=== PATIENT | male | born 1955 | race Caucasian/White ===

== ENCOUNTER 2017-10-10 07:54 | Observation (INO) | payer OTHER ==
[2017-10-10 08:51] LABS: ADD MAN DIFF? NO
[2017-10-10 08:54] LABS: BASOPHILS % 0.5 % (0.0-2.0); EOSINOPHILS # 0.1 10^3/ul (0.0-0.5); HEMATOCRIT 47.8 % (42.0-52.0); HEMOGLOBIN 16.5 g/dl (14.0-18.0); LYMPHOCYTES # 1.7 10^3/ul (0.8-2.9); LYMPHOCYTES % 21.2 % (15.0-51.0); MEAN CORPUSCULAR HEMOGLOBIN 31.3 pg (29.0-33.0); MEAN CORPUSCULAR HGB CONC 34.5 g/dl (32.0-37.0); MEAN CORPUSCULAR VOLUME 90.7 fl (82.0-101.0); MEAN PLATELET VOLUME 9.3 fl (7.4-10.4); MONOCYTE # 0.4 10^3/ul (0.3-0.9); MONOCYTES % 4.6 % (0.0-11.0); NEUTROPHIL # 5.7 10^3/ul (1.6-7.5); NEUTROPHILS % 72.2 % (39.0-77.0); PLATELET COUNT 143 10^3/UL (140-415); RED BLOOD COUNT 5.27 10^6/ul (4.70-6.10); RED CELL DISTRIBUTION WIDTH 12.8 % (11.5-14.5)
[2017-10-10 08:54] LABS: WHITE BLOOD COUNT 7.8 10^3/ul (4.8-10.8)
[2017-10-10 09:16] LABS: ANION GAP 12 (8-16); BLOOD UREA NITROGEN 16 mg/dl (7-20); CALCIUM 9.4 mg/dl (8.4-10.2); CARBON DIOXIDE 27 mmol/L (21-31); CHLORIDE 107 mmol/L (97-110); CREATININE 1.08 mg/dl (0.61-1.24); GLUCOSE 143 mg/dl (70-220); POTASSIUM 4.2 mmol/L (3.5-5.1); SODIUM 142 mmol/L (135-144)
[2017-10-10 09:28] LABS: TROPONIN-I 0.085 ng/ml (0.00-0.12)
[2017-10-10] MEDS: ASPIRIN 325 MG TAB PO (10:09)
[2017-10-10] MEDS ORDERED: ONDANSETRON 4 MG INJ IV (13:00)
[2017-10-10] MEDS ORDERED: HYDROCODONE/APAP (5/325) TAB PO (13:00)
[2017-10-10] MEDS ORDERED: morphine 2 MG INJ IV (13:00)
[2017-10-10] MEDS ORDERED: NITROGLYCERIN (SL) 0.4 MG TAB SL ×2 (13:00→20:30)
[2017-10-10] MEDS ORDERED: ACETAMINOPHEN 325 MG TAB PO ×2 (13:00→20:30)
[2017-10-10] MEDS ORDERED: NACL 0.9% 3 ML SYG IV (13:00)
[2017-10-10] MEDS ORDERED: DOCUSATE SODIUM 100 MG CAP PO (13:00)
[2017-10-10 14:11] LABS: CREATINE KINASE 105 IU/L (23-200)
[2017-10-10 14:24] LABS: CK INDEX 2.5
[2017-10-10 14:41] LABS: CK-MB 2.65 ng/ml (0.0-2.4)
[2017-10-10 14:42] LABS: TROPONIN-I 0.338 ng/ml (0.00-0.12)
[2017-10-10] MEDS ORDERED: VERAPAMIL 5 MG INJ ×2 (16:04→18:42)
[2017-10-10] MEDS ORDERED: LIDOCAINE 1% (MDV) 20 ML INJ (16:04)
[2017-10-10] MEDS ORDERED: FENTAnyl 50 MCG/ML VIAL (16:04)
[2017-10-10] MEDS ORDERED: MIDAZOLAM 1 MG/ML 2 ML INJ (16:04)
[2017-10-10] MEDS ORDERED: NITROGLYCERIN (IC) 100 MCG/ML INJ (16:14)
[2017-10-10] MEDS ORDERED: SOD CHLORIDE 0.9% 500 ML (16:27)
[2017-10-10] MEDS ORDERED: TICAGRELOR 90 MG TABLET (18:44)
[2017-10-10] MEDS ORDERED: IOHEXOL 350MG/ML 50 ML BTL (18:45)
[2017-10-10] MEDS ORDERED: IODIXANOL LOCM 100 ML BTL (18:46)
[2017-10-10] MEDS ORDERED: ADENOSINE 30 ML (19:16)
[2017-10-10] MEDS ORDERED: BIVALIRUDIN 250MG /NS 50 ML 100 ML IVPB (19:33)
[2017-10-10] MEDS ORDERED: OXYCODONE/ACETAMINOPHEN (5/325) TAB PO ×2 (20:30)
[2017-10-10] MEDS: SOD CHLORIDE 0.9% 1,000 ML IV (20:30)
[2017-10-10] MEDS: morphine 2 MG INJ IV (20:55)
[2017-10-10] MEDS ORDERED: TICAGRELOR 90 MG TABLET PO (21:00)
[2017-10-10 21:24] LABS: CREATINE KINASE 97 IU/L (23-200)
[2017-10-10 21:37] LABS: CK INDEX 3.2
[2017-10-10 21:40] LABS: CK-MB 3.07 ng/ml (0.0-2.4); TROPONIN-I 0.313 ng/ml (0.00-0.12)
[2017-10-10] MEDS: ATORVASTATIN 40 MG TAB PO (22:20)
[2017-10-10] MEDS: FAMOTIDINE 20 MG TAB PO (22:20)
[2017-10-11 05:45] LABS: ABNORMAL IP MESSAGE 1; HEMATOCRIT 43.8 % (42.0-52.0); HEMOGLOBIN 15.7 g/dl (14.0-18.0); MEAN CORPUSCULAR HEMOGLOBIN 31.8 pg (29.0-33.0); MEAN CORPUSCULAR HGB CONC 35.8 g/dl (32.0-37.0); MEAN CORPUSCULAR VOLUME 88.8 fl (82.0-101.0); MEAN PLATELET VOLUME 9.7 fl (7.4-10.4); PLATELET COUNT 149 10^3/UL (140-415); POSITIVE DIFF @See below; RED BLOOD COUNT 4.93 10^6/ul (4.70-6.10); RED CELL DISTRIBUTION WIDTH 13.2 % (11.5-14.5)
[2017-10-11 05:45] LABS: WHITE BLOOD COUNT 10.5 10^3/ul (4.8-10.8)
[2017-10-11 06:23] LABS: CREATINE KINASE 442 IU/L (23-200)
[2017-10-11 06:30] LABS: ALANINE AMINOTRANSFERASE 46 IU/L (13-69); ALBUMIN 3.6 g/dl (3.3-4.9); ALBUMIN/GLOBULIN RATIO 1.24; ALKALINE PHOSPHATASE 37 IU/L (42-121); ANION GAP 13 (8-16); ASPARTATE AMINO TRANSFERASE 66 IU/L (15-46); BILIRUBIN,INDIRECT 1.6 mg/dl (0-1.1); BILIRUBIN,TOTAL 1.6 mg/dl (0.2-1.3); BLOOD UREA NITROGEN 10 mg/dl (7-20); CALCIUM 9.7 mg/dl (8.4-10.2); CARBON DIOXIDE 29 mmol/L (21-31); CHLORIDE 104 mmol/L (97-110); CREATININE 1.04 mg/dl (0.61-1.24); GLUCOSE 107 mg/dl (70-220); POTASSIUM 4.7 mmol/L (3.5-5.1); SODIUM 141 mmol/L (135-144); TOTAL PROTEIN 6.5 g/dl (6.1-8.1)
[2017-10-11 06:32] LABS: CHOL/HDL RATIO 6.4 RATIO; CHOLESTEROL 201 mg/dl (100-200); HDL CHOLESTEROL 31 mg/dl (30-78); LDL CHOLESTEROL,CALCULATED 132 mg/dl; MAGNESIUM 1.6 mg/dl (1.7-2.5); TRIGLYCERIDES 188 mg/dl (0-149)
[2017-10-11 06:32] LABS: PHOSPHORUS 3.6 mg/dl (2.5-4.9)
[2017-10-11 06:35] LABS: CK INDEX 9.7
[2017-10-11 06:43] LABS: FREE THYROXINE INDEX (Calc) 2.88 ug/ml (0.65-3.89); T3 UPTAKE 38.4 % (23.5-40.5); T4 (THYROXINE) 7.5 ug/dl (5.5-11.0)
[2017-10-11 07:00] LABS: ADD MAN DIFF? YES
[2017-10-11 07:51] LABS: HEMOGLOBIN A1C 5.1 % (0-5.9)
[2017-10-11] MEDS ORDERED: ENOXAPARIN 40 MG/0.4 ML SYG SC (09:00)
[2017-10-11] MEDS ORDERED: MAGNESIUM SULFATE 3 GM in DEXTROSE 5% 100 ML IVPB (09:00)
[2017-10-11] MEDS: TICAGRELOR 90 MG TABLET PO ×2 (09:18→22:12)
[2017-10-11] MEDS: FAMOTIDINE 20 MG TAB PO ×2 (09:19→20:13)
[2017-10-11] MEDS: MAGNESIUM SULFATE 4 GM/100 ML 100 ML IVPB (09:20)
[2017-10-11 11:17] LABS: ANISOCYTOSIS 2+ (0-0); BAND NEUTROPHILS #M 0.1 10^3/ul (0.0-0.6); BAND NEUTROPHILS % (M) 1 % (0-4); EOSINOPHILS % (M) 2 % (0-7); LYMPHOCYTES #M 0.9 10^3/ul (0.8-2.9); LYMPHOCYTES % (M) 9 % (15-51); MICROCYTOSIS 2+ (0-0); MONOCYTE #M 0.4 10^3/ul (0.3-0.9); MONOCYTES % (M) 4 % (0-11); PLATELET ESTIMATE NORMAL; POLYCHROMASIA 1+ (0-0); REACTIVE LYMPHOCYTES #M 0.3 10^3/ul (0.0-0.0); REACTIVE LYMPHOCYTES% (M) 3 % (0-0); SEG NEUT #M 8.5 10^3/ul (1.7-7.5); SEGMENTED NEUTROPHILS (M) % 81 % (39-77); SMUDGE%M 8 % (0-0)
[2017-10-11] MEDS: ATORVASTATIN 40 MG TAB PO (20:12)
[2017-10-12 05:34] LABS: ADD MAN DIFF? NO
[2017-10-12 05:42] LABS: BASOPHIL # 0.1 10^3/ul (0.0-0.1); BASOPHILS % 0.6 % (0.0-2.0); EOSINOPHILS # 0.1 10^3/ul (0.0-0.5); EOSINOPHILS % 1.3 % (0.0-7.0); HEMATOCRIT 46.8 % (42.0-52.0); HEMOGLOBIN 16.2 g/dl (14.0-18.0); LYMPHOCYTES # 2.5 10^3/ul (0.8-2.9); LYMPHOCYTES % 27.1 % (15.0-51.0); MEAN CORPUSCULAR HEMOGLOBIN 31.3 pg (29.0-33.0); MEAN CORPUSCULAR HGB CONC 34.6 g/dl (32.0-37.0); MEAN CORPUSCULAR VOLUME 90.3 fl (82.0-101.0); MEAN PLATELET VOLUME 9.7 fl (7.4-10.4); MONOCYTE # 0.7 10^3/ul (0.3-0.9); MONOCYTES % 7.9 % (0.0-11.0); NEUTROPHIL # 5.7 10^3/ul (1.6-7.5); NEUTROPHILS % 62.8 % (39.0-77.0); PLATELET COUNT 143 10^3/UL (140-415); RED BLOOD COUNT 5.18 10^6/ul (4.70-6.10); RED CELL DISTRIBUTION WIDTH 13.2 % (11.5-14.5)
[2017-10-12 06:20] LABS: CREATINE KINASE 248 IU/L (23-200)
[2017-10-12 06:24] LABS: ALANINE AMINOTRANSFERASE 46 IU/L (13-69); ALBUMIN 4.1 g/dl (3.3-4.9); ALBUMIN/GLOBULIN RATIO 1.57; ALKALINE PHOSPHATASE 35 IU/L (42-121); ANION GAP 14 (8-16); ASPARTATE AMINO TRANSFERASE 61 IU/L (15-46); BILIRUBIN,INDIRECT 1.9 mg/dl (0-1.1); BILIRUBIN,TOTAL 1.9 mg/dl (0.2-1.3); BLOOD UREA NITROGEN 15 mg/dl (7-20); CALCIUM 9.2 mg/dl (8.4-10.2); CARBON DIOXIDE 28 mmol/L (21-31); CHLORIDE 104 mmol/L (97-110); CREATININE 1.24 mg/dl (0.61-1.24); GLUCOSE 121 mg/dl (70-220); MAGNESIUM 2.1 mg/dl (1.7-2.5); POTASSIUM 4.5 mmol/L (3.5-5.1); SODIUM 141 mmol/L (135-144); TOTAL PROTEIN 6.7 g/dl (6.1-8.1)
[2017-10-12 06:32] LABS: CK INDEX 5.2
[2017-10-12] MEDS ORDERED: INFLUENZA VIRUS VACCINE 0.5 ML SYG IM* (09:00)
[2017-10-12] MEDS: ASPIRIN 81 MG TAB PO (09:16)
[2017-10-12] MEDS: TICAGRELOR 90 MG TABLET PO (09:16)
[2017-10-12] MEDS: FAMOTIDINE 20 MG TAB PO (09:19)
== END 2017-10-12 13:40 | disposition home or self-care (01) ==
LOC: MS4 10-11 17:00 → E/R 07:54 → MS3 10:23 → ICU 17:08
DX: I21.4 Non-ST elevation (NSTEMI) myocardial infarction (principal); I10 Essential (primary) hypertension; R00.1 Bradycardia, unspecified; E78.5 Hyperlipidemia, unspecified; Z23 Encounter for immunization
CPT/HCPCS: 36415; 71010; 80048; 80053; 80061; 82550; 82553; 83036; 83735; 84100; 84436; 84443; 84479; 84484; 85025; 90686; 92941; 93005; 93306; 93458; 99217; 99285-25